=== PATIENT | female | born 1970 | race Two or more races ===

== ENCOUNTER 2025-01-04 11:42 | Emergency (ER) | payer MEDICAID ==
[~2025-01-04] VITALS: Ht 165.1 cm; Wt 70.3 kg
[2025-01-04] MEDS ORDERED: OXYCODONE/APAP 5-325 MG TABLET ONE (12:14)
[2025-01-04] MEDS: OXYCODONE/APAP 5-325 MG TABLET PO ONE (12:17)
[2025-01-04 12:46] LABS: BASOPHILS % (AUTO) 0.2 % (0.0-2.0); CALCIUM 8.5 mg/dL (8.5-10.1); CREATININE 0.8 mg/dL (0.6-1.3); HEMATOCRIT 38.6 % (31.2-41.9); HEMOGLOBIN 13.2 g/dL (10.9-14.3); LYMPHOCYTES # (AUTO) 1.1 K/uL (0.8-4.8); MEAN CORPUSCULAR HEMOGLOBIN 29.4 uug (24.7-32.8); MEAN CORPUSCULAR HGB CONC 34 g/dL (32.3-35.6); MEAN CORPUSCULAR VOLUME 86.3 fL (75.5-95.3); MONOCYTES # (AUTO) 0.3 K/uL (0.1-1.30); MONOCYTES % (AUTO) 13.1 % (0.0-11.0); NEUTROPHILS # (AUTO) 0.8 K/uL (1.8-8.9); NEUTROPHILS % (AUTO) 36.7 % (38.5-71.5); PLATELET COUNT (AUTO) 155 K/uL (179-408); POTASSIUM 3.2 mmol/L (3.5-5.1); RED BLOOD CELL COUNT(AUTO) 4.47 MIL/uL (3.63-4.92); RED CELL DISTRIBUTION WIDTH 14.4 % (12.3-17.7); WHITE BLOOD COUNT (AUTO) 2.2 K/uL (3.8-11.8)
[2025-01-04] MEDS ORDERED: POTASSIUM BICARBONATE/CIT AC 25 MEQ TABLET.EFF ONE (12:55)
[2025-01-04] MEDS: POTASSIUM BICARBONATE/CIT AC 25 MEQ TABLET.EFF PO ONE (12:59)
[2025-01-04] MEDS ORDERED: ONDA4TAB5 PO (13:24)
[2025-01-04] MEDS ORDERED: POTA25TA7 PO (13:24)
[2025-01-04] MEDS ORDERED: NAPR-1164 PO (13:24)
[2025-01-04] MEDS ORDERED: GUAI5SYR4 PO (13:24)
[2025-01-04 13:56] VITALS: BP 116/56; TEMP 98.7; O2SAT 99
== END 2025-01-04 13:56 | disposition home or self-care (01) ==
LOC: ER 11:51
DX: J11.1 Influenza due to unidentified influenza virus with other respiratory manifestations (principal); E87.6 Hypokalemia; E78.5 Hyperlipidemia, unspecified; R11.10 Vomiting, unspecified; Z20.822 Contact with and (suspected) exposure to COVID-19
CPT/HCPCS: 36415; 71045; 85025; A4606; A4663